=== PATIENT | male | born 1995 | race Caucasian/White ===

== ENCOUNTER 2017-01-30 20:34 | Emergency (ER) | payer OTHER ==
[~2017-01-30] VITALS: Ht 182.9 cm; Wt 127.0 kg
[2017-01-30 20:37] VITALS: BP 135/65
--- NOTE | 2017-01-30 22:21 | NUR ---
PT TAKEN TO BED 6
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
--- NOTE | 2017-01-30 22:40 | NUR ---
TAKEN TO X-RAY
--- NOTE | 2017-01-30 22:50 | NUR ---
CAME BACK FROM X-RAY
[2017-01-31 00:01] VITALS: BP 123/72
--- NOTE | 2017-01-31 00:01 | NUR ---
Patient discharged with v/s stable. Written and verbal after care instructions given and explained. Patient alert, oriented and verbalized understanding of instructions. Ambulatory with steady gait. All questions addressed prior to discharge. ID band removed. Patient advised to follow up with PMD. Rx of NAPROSYN 500 MG given. Patient educated on indication of medication including possible reaction and side effects. Opportunity to ask questions provided and answered.
== END 2017-01-31 00:01 | disposition home or self-care (01) ==
LOC: MED 20:34
DX: S16.1XXA Strain of muscle, fascia and tendon at neck level, initial encounter (principal); S60.221A Contusion of right hand, initial encounter; V43.52XA Car driver injured in collision with other type car in traffic accident, initial encounter; Y93.89 Activity, other specified; Y92.89 Other specified places as the place of occurrence of the external cause; Y99.8 Other external cause status

== ENCOUNTER 2017-11-02 18:51 | Emergency (ER) | payer OTHER ==
[~2017-11-02] VITALS: Ht 182.9 cm; Wt 136.1 kg
[2017-11-02 19:15] VITALS: BP 151/73
--- NOTE | 2017-11-02 19:17 | NUR ---
PT TRIAGED, PT AMBULATED TO LOBBY. ERMD NOTIFIED OF PATIENT STATUS.
--- NOTE | 2017-11-02 19:30 | NUR ---
BLOOD DRAWED FOR LAB WORKS DONE BY SPECIALTY TRIMMER, PATIENT TOLERATED WELL, PATIENT RETURNED BACK TO THE LOBBY IN STABLE CONDITION, ERMD NOTED
[2017-11-02 20:04] LABS: EOSINOPHILS % (AUTO) 0.3 % (0.0-4.0); HEMOGLOBIN 16.9 g/dL (12.0-18.0); LYMPHOCYTES # (AUTO) 0.8 K/uL (2.0-11.5); LYMPHOCYTES % (AUTO) 6.4 % (20.5-51.1)
[2017-11-02 20:09] LABS: BASOPHILS # (AUTO) 0.3 K/uL (0.00-0.22); BASOPHILS % (AUTO) 2.4 % (0.0-2.0); MEAN CORPUSCULAR HEMOGLOBIN 29 pg (27-31); MEAN CORPUSCULAR HGB CONC 33 g/dL (33-37); MEAN CORPUSCULAR VOLUME 88 fL (80-94); MONOCYTES # (AUTO) 0.5 K/uL (0.8-1.0); MONOCYTES % (AUTO) 4.4 % (1.7-9.3); NEUTROPHILS # (AUTO) 10.2 K/uL (1.8-7.7); NEUTROPHILS % (AUTO) 86.5 % (42.2-75.2); PLATELET COUNT (AUTO) 242 K/uL (140-450); RED CELL DISTRIBUTION WIDTH 11.9 % (11.6-13.7); WHITE BLOOD COUNT (AUTO) 11.8 K/uL (4.8-10.8)
[2017-11-02 20:10] LABS: ANION GAP 15.2 (8-16); CARBON DIOXIDE 25.8 mmol/L (21-32); CREATININE 1.4 mg/dL (0.7-1.3)
[2017-11-02 20:17] LABS: ALBUMIN 4.1 g/dL (3.4-5.0); TOTAL BILIRUBIN 1.4 mg/dL (0.0-1.0)
--- NOTE | 2017-11-02 21:45 | NUR ---
PATIENT PRESENTS TO ED WITH C/O ABDOMINAL PAIN, NVD x 1 DAY.AAOX4 WITH EVEN AND STEADY GAIT; LUNGS CLEAR BL; HR EVEN AND REGULAR; PT DENIES ANY FEVER, CP, SOB, OR COUGH AT THIS TIME; PATIENT STATES PAIN OF 7/10 AT THIS TIME; VSS; PATIENT POSITIONED FOR COMFORT; HOB ELEVATED; BEDRAILS UP X2; BED DOWN. ER MD MADE AWARE OF PT STATUS.
[2017-11-02] MEDS: ONDANSETRON 4 MG ODT PO ONE (22:25)
[2017-11-02 22:33] VITALS: BP 153/78
--- NOTE | 2017-11-02 22:33 | NUR ---
Patient discharged with v/s stable. Written and verbal after care instructions given and explained. Patient alert, oriented and verbalized understanding of instructions. Ambulatory with steady gait. All questions addressed prior to discharge. ID band removed. Patient advised to follow up with PMD. Rx of ZOFRAN AND IMODIUM given. Patient educated on indication of medication including possible reaction and side effects. Opportunity to ask questions provided and answered.
== END 2017-11-02 22:33 | disposition home or self-care (01) ==
LOC: MED 18:51
DX: R11.2 Nausea with vomiting, unspecified (principal); R19.7 Diarrhea, unspecified
CPT/HCPCS: 36415; 80053; 81002; 83690; 85025; 99284; S0119

== ENCOUNTER 2019-05-27 08:39 | Emergency (ER) | payer OTHER ==
[~2019-05-27] VITALS: Ht 182.9 cm; Wt 147.4 kg
[2019-05-27 08:46] VITALS: BP 139/71
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
--- NOTE | 2019-05-27 08:47 | NUR ---
Patient ambulated to bed 4. RN evaluating patient at bedside.
--- NOTE | 2019-05-27 08:51 | NUR ---
Dr. Mary evaluating patient at bedside.
[2019-05-27] MEDS ORDERED: IBUPROFEN 400 MG TAB PO ONE (08:55)
--- NOTE | 2019-05-27 08:56 | NUR ---
accredited pharmacy technician at bedside.
--- NOTE | 2019-05-27 09:24 | NUR ---
Dr. Mary re-evaluating patient at bedside.
[2019-05-27 09:35] VITALS: BP 134/74
== END 2019-05-27 09:35 | disposition home or self-care (01) ==
LOC: MED 08:39
DX: S60.151A Contusion of right little finger with damage to nail, initial encounter (principal); R03.0 Elevated blood-pressure reading, without diagnosis of hypertension; W22.8XXA Striking against or struck by other objects, initial encounter; Y93.89 Activity, other specified; Y92.89 Other specified places as the place of occurrence of the external cause; Y99.8 Other external cause status
CPT/HCPCS: 29130; 73140; 99283; Q0092